=== PATIENT | female | born 1990 | race American Indian/Alaskan Native ===

== ENCOUNTER 2016-05-03 00:54 | Emergency (ER) | payer SELFPAY | END 2016-05-03 00:55 | disposition left against medical advice (07) | LOC: ED 00:54 | DX: M79.1 Myalgia (principal); Z53.21 Procedure and treatment not carried out due to patient leaving prior to being seen by health care provider ==

== ENCOUNTER 2016-05-03 08:43 | Emergency (ER) | payer SELFPAY ==
[2016-05-03 08:59] VITALS: BP 124/68
== END 2016-05-03 14:45 | disposition left against medical advice (07) ==
LOC: ED 08:43
DX: R51 Headache (principal); R07.9 Chest pain, unspecified; M79.1 Myalgia; Z53.21 Procedure and treatment not carried out due to patient leaving prior to being seen by health care provider